=== PATIENT | female | born 1975 | race Hispanic/Latino ===

== ENCOUNTER 2018-04-25 15:27 | Emergency (ER) | payer BC, OTHER ==
[2018-04-25 15:31] VITALS: O2SAT 97
--- NOTE | 2018-04-25 16:00 | ED PDOC ---
HPI: General Adult Time Seen by Provider: 04/25/18 15:29 Chief Complaint (Nursing): Trauma Chief Complaint (Provider): lip laceration/fall/ History Per: Patient (42 y/o female states she tripped at construction site today and struck face. Believes she had LOC short episode subsequently but is not sure. Tetanus up to date 1.5 years ago. Patient denies any loose dentition.) Past Medical History Reviewed: Historical Data, Nursing Documentation, Vital Signs Vital Signs: Last Vital Signs Temp 98.0 F 04/25/18 15:29 Pulse 124 H 04/25/18 15:29 Resp 16 04/25/18 15:29 BP 164/115 H 04/25/18 15:29 Pulse Ox 97 04/25/18 15:29 - Medical History PMH: Anxiety - Family History Family History: States: Unknown Family Hx - Immunization History Hx Tetanus Toxoid Vaccination: Yes (2015) Hx Influenza Vaccination: No Hx Pneumococcal Vaccination: No - Home Medications Home Medications: Ambulatory Orders Medication Instructions Recorded Cyclobenzaprine [Cyclobenzaprine 10 mg PO Q8 #9 tab 04/23/17 HCl] Escitalopram [Lexapro] 10 mg PO DAILY 04/23/17 Ibuprofen [Motrin] 600 mg PO TID #30 tab 04/23/17 Lidocaine 5% [Lidoderm] 1 ea TD DAILY #6 patch 04/23/17 Cephalexin [Keflex] 500 mg PO QID #20 capsule 04/25/18 - Allergies Allergies/Adverse Reactions: Allergies Allergy/AdvReac Type Severity Reaction Status Date / Time No Known Allergies Allergy Verified 04/25/18 15:29 Review of Systems ROS Statement: Except As Marked, All Systems Reviewed And Found Negative Physical Exam - Reviewed Nursing Documentation Reviewed: Yes Vital Signs Reviewed: Yes - Physical Exam Appears: Positive for: Well, Non-toxic, No Acute Distress Head Exam: Positive for: NORMAL INSPECTION, NORMOCEPHALIC. Negative for: ATRAUMATIC ( abrasion noted frontal region of head/chin. ) Skin: Positive for: Normal Color, Warm, DRY Eye Exam: Positive for: EOMI, Normal appearance, PERRL ENT: Negative for: Normal ENT Inspection (abrasion-laceration above lip. 1.0 cm laceration noted above right side of lip involving vermilion border.) Neck: Positive for: Normal, Painless ROM Cardiovascular/Chest: Positive for: Regular Rate, Rhythm Respiratory: Positive for: CNT, Normal Breath Sounds Gastrointestinal/Abdominal: Positive for: Normal Exam, Soft Back: Positive for: Normal Inspection Extremity: Positive for: Normal ROM Neurologic/Psych: Positive for: Alert, Oriented - ECG O2 Sat by Pulse Oximetry: 97 - Progress ED Course And Treament: CT ORBIT/FACIAL Impression: No acute displaced fracture. Partially imaged cervical spine demonstrates straightening of normal cervical lordosis may be related to muscle spasm or positioning. CT HEAD : IMPRESSION: No acute intracranial pathology identified. 8 x 9 mm rounded heterogeneous opacity at the level of the cavernous sinus of unclear significance. Small aneurysm or neoplasm such as meningioma are not excluded. Recommend MRI brain and/or CTA or MRA of the brain for further evaluation. Generalized atrophy. Findings discussed with CARLOS ENRIQUE Richard on 04/25/18 at 5:27 p.m. MRA: UNREMARKABLE MRA OF BRAIN Disposition - Clinical Impression Clinical Impression: Facial injury, Facial laceration, Head injury - Patient ED Disposition Is Patient to be Admitted: No - Disposition Disposition: Routine/Home Disposition Time: 19:47 Condition: FAIR Additional Instructions: F/U IN 4 TO 5 DAYS FOR REMOVAL OF SUTURES Prescriptions: Cephalexin [Keflex] 500 mg PO QID #20 capsule Instructions: Laceration Repair With Stitches (DC), Minor Head Injury (DC) Forms: [facility] ED School/Work Excuse Procedure: Wound Repair - Time Performed Time Performed: 19:30 - Time Out Time Out: Site verified - Consent Obtained Consent obtained: Verbal - Performed by Performed by: Mid-level Provider - Indications Indication(s):: Laceration - Location Location:: Mouth Shape:: Linear Dimensions Length cm: 1.0CM - Anesthetic Technique Local/Regional Anesthetic:: Lidocaine 2% - Irrigated Irrigated with ml of normal saline: 150ML NS - Complexity Complexity:: Intermediate (2 layer) - Wound repair method Sutures:: # (1.0 CM THROUGH AND THROUGH LAC: TWO 6-0 VICRYL INTERNAL INTERRUPTED; THREE 6-0 NYLON INTERRUPTED EXTERNALLY) - Patient tolerated procedure Patient Tolerated Procedure:: Well
--- NOTE | 2018-04-25 17:31 | CT ---
Date of service: 04/25/2018 PROCEDURE: CT HEAD WITHOUT CONTRAST. HISTORY: head injury COMPARISON: None available. TECHNIQUE: Axial computed tomography images were obtained through the head/brain without intravenous contrast. Radiation dose: Total exam DLP = 1521.87 mGy-cm. This CT exam was performed using one or more of the following dose reduction techniques: Automated exposure control, adjustment of the mA and/or kV according to patient size, and/or use of iterative reconstruction technique. FINDINGS: HEMORRHAGE: No intracranial hemorrhage. BRAIN: Diffuse atrophy with prominence of the ventricles and sulci noted. No mass effect or edema. 8 x 9 mm rounded heterogeneous opacity the level of the cavernous sinus (series 4, image 111) of unclear significance. Scattered periventricular and subcortical white matter hypodensities, which are nonspecific, but often seen with chronic microvascular ischemic disease. Please note that MRI with diffusion imaging is more sensitive in the detection of acute ischemic event. VENTRICLES: No hydrocephalus. CALVARIUM: Unremarkable. PARANASAL SINUSES: Unremarkable as visualized. No significant inflammatory changes. MASTOID AIR CELLS: Unremarkable as visualized. No inflammatory changes. OTHER FINDINGS: None. IMPRESSION: No acute intracranial pathology identified. 8 x 9 mm rounded heterogeneous opacity at the level of the cavernous sinus of unclear significance. Small aneurysm or neoplasm such as meningioma are not excluded. Recommend MRI brain and/or CTA or MRA of the brain for further evaluation. Generalized atrophy. Findings discussed with CARLOS ENRIQUE Richard on 04/25/18 at 5:27 p.m.
--- NOTE | 2018-04-25 17:59 | CT ---
CT orbits without IV contrast Indication: Facial injury Comparison: Noncontrast head CT performed the same day Technique: Axial computed tomography images were obtained of the orbits without the use of intravenous contrast. Coronal and sagittal reformatted images were generated and reviewed. This CT exam was performed using 1 or more of the following dose reduction techniques: Automated exposure control, adjustment of the MAA and/or kV according to patient size, and/or use of iterative reconstruction technique. Radiation dose: Total exam DLP = 1521.87 mGy-cm. Findings: The facial bones appear intact without acute displaced fracture identified. The orbits appear unremarkable. The temporomandibular joints are located. The mastoid air cells appear clear. Paranasal sinuses appear clear. Partially imaged cervical spine demonstrates straightening of normal cervical lordosis may be related to muscle spasm or positioning. Impression: No acute displaced fracture. Partially imaged cervical spine demonstrates straightening of normal cervical lordosis may be related to muscle spasm or positioning.
[2018-04-25] MEDS ORDERED: Lidocaine PF 2% (5 ml) Inj (For Cardiac Arrhy) ONE (18:49)
[2018-04-25] MEDS: Lidocaine 2% Inj (20ml) INFIL STA (18:58)
[2018-04-25 19:51] VITALS: BP 119/79; PULSE 84; RESP 20; TEMP 97.9
--- NOTE | 2018-04-26 10:44 | MRI ---
Date of service: 04/25/2018 PROCEDURE: Magnetic Resonance Angiography Brain HISTORY: Evaluate for aneurysm COMPARISON: None available. TECHNIQUE: 3D time of flight MR angiography of the intracranial arteries was performed. Rotating maximum intensity projection images were generated. FINDINGS: INTERNAL CAROTID ARTERIES: Normal flow related signal. The skull base, petrous, cavernous and supraclinoid segments are bilaterally widely patient. ANTERIOR CEREBRAL ARTERIES: Normal flow related signal. A1 and A2 segments are widely patent. Smaller distal branches unremarkable, as visualized. MIDDLE CEREBRAL ARTERIES: Normal flow related signal. M1 and M2 segments are widely patent. Perisylvian branches grossly symmetric. POSTERIOR CIRCULATION: Basilar Artery: Normal flow related signal. Distal Vertebral Arteries: Normal flow related signal. Posterior Cerebral Arteries: Normal flow related signal. Posterior Inferior Cerebellar Arteries: Normal flow related signal. ANEURYSM/ VASCULAR MALFORMATIONS: None. OTHER FINDINGS: None. IMPRESSION: Normal MR angiography of the brain. No evidence for saccular aneurysm. A preliminary report was provided by [employer].
== END 2018-04-25 19:58 | disposition home or self-care (01) ==
LOC: H.ER 15:27
DX: S01.511A Laceration without foreign body of lip, initial encounter (principal); S01.81XA Laceration without foreign body of other part of head, initial encounter; S09.90XA Unspecified injury of head, initial encounter; W19.XXXA Unspecified fall, initial encounter; Y92.89 Other specified places as the place of occurrence of the external cause

== ENCOUNTER 2018-05-01 14:41 | Emergency (ER) | payer BC, OTHER ==
[2018-05-01 15:08] VITALS: BP 122/83; PULSE 100; RESP 18; TEMP 98.1; O2SAT 99
--- NOTE | 2018-05-01 15:58 | ED PDOC ---
HPI: Wound Care - HPI Time Seen by Provider: 05/01/18 15:56 Chief Complaint (Nursing): Suture/Staple Removal Chief Complaint (Provider): Suture Removal History Per: Patient Exam Limitations: no limitations Additional Complaint(s): 42 year old female presents to the ED for suture removal. 3 sutures were placed superior to the upper lip on April 25. PMD: [place] Past Medical History Reviewed: Historical Data, Nursing Documentation, Vital Signs Vital Signs: Last Vital Signs Temp 98.1 F 05/01/18 15:05 Pulse 100 H 05/01/18 15:05 Resp 18 05/01/18 15:05 BP 122/83 05/01/18 15:05 Pulse Ox 99 05/01/18 15:05 - Medical History PMH: Anxiety - Surgical History Surgical History: No Surg Hx - Family History Family History: States: Unknown Family Hx - Immunization History Hx Tetanus Toxoid Vaccination: Yes (2015) Hx Influenza Vaccination: No Hx Pneumococcal Vaccination: No - Home Medications Home Medications: Ambulatory Orders Medication Instructions Recorded Cyclobenzaprine [Cyclobenzaprine 10 mg PO Q8 #9 tab 04/23/17 HCl] Escitalopram [Lexapro] 10 mg PO DAILY 04/23/17 Ibuprofen [Motrin] 600 mg PO TID #30 tab 04/23/17 Lidocaine 5% [Lidoderm] 1 ea TD DAILY #6 patch 04/23/17 Cephalexin [Keflex] 500 mg PO QID #20 capsule 04/25/18 Ibuprofen [Motrin Tab] 800 mg PO Q6H PRN #20 tab 05/01/18 - Allergies Allergies/Adverse Reactions: Allergies Allergy/AdvReac Type Severity Reaction Status Date / Time No Known Allergies Allergy Verified 04/25/18 15:29 Review of Systems ROS Statement: Except As Marked, All Systems Reviewed And Found Negative Physical Exam - Reviewed Nursing Documentation Reviewed: Yes Vital Signs Reviewed: Yes - Physical Exam Appears: Positive for: Non-toxic, No Acute Distress Head Exam: Positive for: ATRAUMATIC, NORMOCEPHALIC Skin: Positive for: Normal Color, Warm, Dry Eye Exam: Positive for: Normal appearance Neck: Positive for: Normal, Painless ROM Cardiovascular/Chest: Negative for: Tachycardia Respiratory: Negative for: Respiratory Distress Extremity: Positive for: Normal ROM Neurologic/Psych: Positive for: Alert, Oriented. Negative for: Motor/Sensory Deficits Comments: 3 sutures, 6:0 nylon, superior to the upper lip intact without erythema or drainage. - ECG O2 Sat by Pulse Oximetry: 99 (RA) Pulse Ox Interpretation: Normal Medical Decision Making Medical Decision Making: Initial Impression: suture removal Initial Plan: Sutures easily removed without complications using 11 blade and suture removal kit. Patient requesting pain medication in the ED. Patient followed up with nurse practitioner and nurse practitioner was appalled we didn't give anything for pain at home. Patient was informed we can give Tylenol and Motrin over the counter and patient replied they don't work for her. It has been 6 days since the incident and can only give Motrin prescription at this time which patient has agreed to. Scribe Attestation: Documented by Otto Stoddard acting as a scribe for Jennifer MONACO. Provider Scribe Attestation: All medical record entries made by the Scribe were at my direction and personally dictated by me. I have reviewed the chart and agree that the record accurately reflects my personal performance of the history, physical exam, medical decision making, and the department course for this patient. I have also personally directed, reviewed, and agree with the discharge instructions and disposition. Disposition - Clinical Impression Clinical Impression: Removal of suture - Patient ED Disposition Is Patient to be Admitted: No - Disposition Referrals: Fitz Petty MD [Medical Doctor] - Disposition Time: 15:58 Condition: STABLE Prescriptions: Ibuprofen [Motrin Tab] 800 mg PO Q6H PRN #20 tab PRN Reason: Pain Instructions: Stitches Removal Forms: [employer] (Faroese)
== END 2018-05-01 16:01 | disposition home or self-care (01) ==
LOC: H.ER 14:41
DX: Z48.02 Encounter for removal of sutures (principal)

== ENCOUNTER 2018-08-17 13:51 | Inpatient (IN) | payer BC, OTHER ==
[2018-08-17] MEDS ORDERED: Sodium Chloride 0.9% 1,000 ML IV STA (14:32)
[2018-08-17] MEDS ORDERED: Morphine 4 MG/ML VIAL IVP ONE (14:32)
[2018-08-17] MEDS ORDERED: Morphine 4 MG/ML VIAL ONE ×4 (14:41→20:44)
--- NOTE | 2018-08-17 14:48 | ED PDOC ---
HPI: Abdomen Time Seen by Provider: 08/17/18 14:27 Chief Complaint (Nursing): Abdominal Pain Chief Complaint (Provider): Abdominal pain History Per: Patient History/Exam Limitations: no limitations Onset/Duration Of Symptoms: Hrs Outside of [place] travel?: No Location Of Pain/Discomfort: LUQ Associated Symptoms: Vomiting. denies: Fever, Diarrhea Additional History Per: Patient Additional Complaint(s): 43yo female, with history of pancreatitis s/p a scorpion bite last summer, comes in complaining of left upper quadrant abdominal pain since this morning. She reports associated vomiting, but denies any diarrhea, bleeding or fevers. She also denies any recent alcohol ingestion. No additional complaints. PMD: None provided Abnormal Vaginal Bleeding: No Past Medical History Reviewed: Historical Data, Nursing Documentation, Vital Signs Vital Signs: Last Vital Signs Temp 98.2 F 08/17/18 14:23 Pulse 77 08/17/18 14:23 Resp 18 08/17/18 14:23 BP 135/77 08/17/18 14:23 Pulse Ox 99 08/17/18 14:23 - Medical History PMH: Anxiety - Surgical History Surgical History: No Surg Hx - Family History Family History: States: No Known Family Hx - Immunization History Hx Tetanus Toxoid Vaccination: Yes (2015) Hx Influenza Vaccination: No Hx Pneumococcal Vaccination: No - Home Medications Home Medications: Ambulatory Orders Medication Instructions Recorded Cyclobenzaprine [Cyclobenzaprine 10 mg PO Q8 #9 tab 04/23/17 HCl] Escitalopram [Lexapro] 10 mg PO DAILY 04/23/17 Ibuprofen [Motrin] 600 mg PO TID #30 tab 04/23/17 Lidocaine 5% [Lidoderm] 1 ea TD DAILY #6 patch 04/23/17 Cephalexin [Keflex] 500 mg PO QID #20 capsule 04/25/18 Ibuprofen [Motrin Tab] 800 mg PO Q6H PRN #20 tab 05/01/18 - Allergies Allergies/Adverse Reactions: Allergies Allergy/AdvReac Type Severity Reaction Status Date / Time No Known Allergies Allergy Verified 04/25/18 15:29 Review of Systems ROS Statement: Except As Marked, All Systems Reviewed And Found Negative Constitutional: Negative for: Fever, Chills Cardiovascular: Negative for: Chest Pain Respiratory: Negative for: Shortness of Breath Gastrointestinal: Positive for: Vomiting, Abdominal Pain. Negative for: Diarrhea Physical Exam - Reviewed Nursing Documentation Reviewed: Yes Vital Signs Reviewed: Yes - Physical Exam Appears: Positive for: Non-toxic, No Acute Distress Head Exam: Positive for: ATRAUMATIC, NORMAL INSPECTION, NORMOCEPHALIC Skin: Positive for: Normal Color Eye Exam: Positive for: Normal appearance Neck: Positive for: Supple Cardiovascular/Chest: Positive for: Regular Rate, Rhythm Respiratory: Positive for: Normal Breath Sounds Gastrointestinal/Abdominal: Positive for: Soft, Tenderness (left upper and mid quadrants). Negative for: Guarding, Rebound Back: Positive for: Normal Inspection. Negative for: L CVA Tenderness Extremity: Positive for: Normal ROM Neurologic/Psych: Positive for: Alert, Oriented. Negative for: Motor/Sensory Deficits - ECG O2 Sat by Pulse Oximetry: 99 (RA) Pulse Ox Interpretation: Normal Medical Decision Making Medical Decision Makinyo female, history of pancreatitis, comes in with left upper quadrant pain rule out recurrent pancreatitis vs. gastritis vs. peptic ulcer disease Plan: -- Labs -- CT A/P w/ contrast -- IV Fluids -- Pepcid 20mg IV -- Zofran 4mg IV -- Morphine 2mg IV 1500 Patient signed out to Dr. Duarte pending ED workup. Scribe Attestation: Documented by Tanna Montes acting as a scribe for Gabe Arteaga MD. Provider Attestation: All medical record entries made by the Scribe were at my direction and personally dictated by me. I have reviewed the chart and agree that the record accurately reflects my personal performance of the history, physical exam, medical decision making, and the department course for this patient. I have also personally directed, reviewed, and agree with the discharge instructions and d isposition. Disposition - Clinical Impression Clinical Impression: Abdominal pain - Patient ED Disposition Is Patient to be Admitted: Transfer of Care - Disposition Disposition: Transfer of Care Disposition Time: 15:01 Condition: FAIR Forms: [id number] (Kinyarwanda) Patient Signed Over To: Rosa Duarte
[2018-08-17 15:08] LABS: BASO % 0.4 % (0.0-2.0); EOS % 0.1 % (0.0-4.0); HEMOGLOBIN 12.8 g/dL (12.0-16.0); LYMPH # 0.6 K/uL (1.0-4.3); LYMPH % 7.4 % (20.0-40.0); MEAN CELL VOLUME 103.2 fl (81.0-99.0); MEAN CORPUSCULAR HEMOGLOBIN 34.2 pg (27.0-31.0); MEAN CORPUSCULAR HGB CONC 33.2 g/dL (33.0-37.0); MEAN PLATELET VOLUME 7.3 fl (7.2-11.7); MONO # 0.5 K/uL (0.0-0.8); MONO % 5.9 % (0.0-10.0); NEUT % 86.2 % (50.0-75.0); PLATELET COUNT 159 K/uL (130-400); RBC 3.73 Mil/uL (3.80-5.20); RED CELL DISTRIBUTION WIDTH 12.9 % (11.5-14.5); WHITE BLOOD COUNT 8.1 K/uL (4.8-10.8)
[2018-08-17 15:29] LABS: ALB/GLOB RATIO 1.3 (1.0-2.1); ALBUMIN 4.1 g/dL (3.5-5.0); ALT/SGPT 122 U/L (9-52); AST/SGOT 236 U/L (14-36); BLOOD UREA NITROGEN 9 mg/dl (7-17); CALCIUM 8.8 mg/dL (8.4-10.2); GFR NON-AFRICAN AMERICAN > 60
[2018-08-17 15:54] LABS: LIPASE 12258 U/L (23-300)
--- NOTE | 2018-08-17 15:59 | ED PDOC ---
- Laboratory Results Result Diagrams: 08/19/18 04:30 08/19/18 21:00 Lab Results: Total Bilirubin 0.9 mg/dl (0.2-1.3) 08/17/18 14:50 AST 236 U/L (14-36) H 08/17/18 14:50 ALT 122 U/L (9-52) H 08/17/18 14:50 Alkaline Phosphatase 71 U/L (38-126) 08/17/18 14:50 Total Protein 7.2 G/DL (6.3-8.2) 08/17/18 14:50 Albumin 4.1 g/dL (3.5-5.0) 08/17/18 14:50 Globulin 3.1 gm/dL (2.2-3.9) 08/17/18 14:50 Albumin/Globulin Ratio 1.3 (1.0-2.1) 08/17/18 14:50 Lipase 54887 U/L (23-300) H 08/17/18 14:50 - ECG O2 Sat by Pulse Oximetry: 99 (RA) Pulse Ox Interpretation: Normal - Critical Care Total Time (In Min): 45 Medical Decision Making Medical Decision Making: Receiving sign out: Patient signed out to me by Dr. Arteaga at 1500 pending labs, imaging studies. 1558 Labs reviewed, [place] [address]. 1630 US Abdomen ordered Case discussed with Dr. Espinal, and patient accepted for admission due to acute pancreatitis. Plan for admission discussed with patient, who is agreeable. Dr. Cortes for GI consult. 19:[address] Cortes. Scribe Attestation: Documented by Tanna Montes acting as a scribe for Rosa Duarte MD. Provider Attestation: All medical record entries made by the Scribe were at my direction and personally dictated by me. I have reviewed the chart and agree that the record accurately reflects my personal performance of the history, physical exam, medical decision making, and the department course for this patient. I have also personally directed, reviewed, and agree with the discharge instructions and disposition. Disposition - Clinical Impression Clinical Impression: Necrotizing pancreatitis - POA Present On Arrival: None - Disposition Disposition: Admitted as In-Patient Disposition Time: 19:15 Condition: CRITICAL
[2018-08-17] MEDS ORDERED: Morphine 4 MG/ML VIAL IV STA ×2 (16:05→18:29)
[2018-08-17] MEDS ORDERED: Lactated Ringer's 1,000 ML IV SCH ×2 (16:15→18:30)
[2018-08-17] MEDS: Lactated Ringer's 1,000 ML IV SCH ×2 (16:44→18:47)
[2018-08-17] MEDS ORDERED: Iohexol 300 100 ML IJ ONE (16:52)
[2018-08-17] MEDS ORDERED: Sodium Chloride 0.9% 50 ML IV ONE (16:52)
[2018-08-17 17:05] LABS: PROTHROMBIN TIME 11.4 Seconds (9.8-13.1)
[2018-08-17 17:08] LABS: PARTIAL THROMBOPLASTIN TIME 24.4 Seconds (25.6-37.1)
--- NOTE | 2018-08-17 18:26 | US ---
Date of service: 08/17/2018 HISTORY: Epigastric/LUQ pain, pancreatitis COMPARISON: 2018 CT abdomen and pelvis TECHNIQUE: Sonographic evaluation of the abdomen. FINDINGS: LIVER: Measures 17.1 cm. Hepatopedal blood flow. Fatty infiltration manifest ultrasonographically as increased echogenicity of the liver parenchyma. No mass. No intrahepatic bile duct dilatation. Trace perihepatic ascites GALLBLADDER: Unremarkable. No gallstones. COMMON BILE DUCT: Measures 3.0 mm. No stones. No dilatation. PANCREAS: Edematous ill-defined head of the pancreas. No ductal dilatation. Peripancreatic fluid identified. RIGHT KIDNEY: Measures 4.1 x 10.8cm. Normal echogenicity. No calculus, mass, or hydronephrosis. LEFT KIDNEY: Measures 3.4 x 11.0cm. Normal echogenicity. No calculus, mass, or hydronephrosis. SPLEEN: Normal in size and contour. No mass. AORTA: No aneurysmal dilatation. IVC: Unremarkable. OTHER FINDINGS: None. IMPRESSION: Findings consistent with clinical history. Edematous enlarged pancreas is visualized with peripancreatic and perihepatic ascites.
--- NOTE | 2018-08-17 18:32 | CT ---
Date of service: 08/17/2018 PROCEDURE: CT Abdomen and Pelvis with contrast HISTORY: Abd pain COMPARISON: 2018 TECHNIQUE: Intravenous contrast dose: 90 cc Visipaque 320. Radiation dose: Total exam DLP = 263.48 mGy-cm. This CT exam was performed using one or more of the following dose reduction techniques: Automated exposure control, adjustment of the mA and/or kV according to patient size, and/or use of iterative reconstruction technique. FINDINGS: LOWER THORAX: Unremarkable. LIVER: Hepatic steatosis. No focal masses. No intrahepatic bile duct dilatation Unremarkable portal venous system. No evidence splenic vein thrombosis. GALLBLADDER AND BILE DUCTS: Unremarkable. PANCREAS: Severe pancreatitis. There is CT evidence necrotizing pancreatitis. The changes primarily affect the pancreatic head and body with relative sparing of the pancreatic tail. In addition to a profoundly edematous pancreas series peripancreatic fluid. This tracks along tissue planes interposed between the pancreas and stomach and pancreas and spleen. Trace perihepatic ascites. Small cyst likely pancreatic pseudocyst interposed between the pancreas, aorta and IVC. SPLEEN: Unremarkable. ADRENALS: Unremarkable. No mass. KIDNEYS AND URETERS: Unremarkable. No hydronephrosis. No solid mass. VASCULATURE: Unremarkable. No aortic aneurysm. No atherosclerotic calcification or mural plaque present. BOWEL: Dilatation of small bowel likely ileus related to severe pancreatitis. APPENDIX: Normal appendix. PERITONEUM: Unremarkable. No free fluid. No free air. LYMPH NODES: Unremarkable. No enlarged lymph nodes. BLADDER: Unremarkable. REPRODUCTIVE: Unremarkable. BONES: No acute fracture. OTHER FINDINGS: None. IMPRESSION: Necrotizing pancreatitis. Findings described in greater detail above. Communication of results: Verbal results provided to the attending physician in the emergency department at 18:26.
[2018-08-17 19:33] LABS: BANDS 4 % (0-2); EOSINOPHIL 1 % (0-7); LYMPHOCYTE 7 % (20-50); MONOCYTE 6 % (0-10); NEUTROPHIL 82 % (42-75); TOTAL CELLS COUNTED 100
[2018-08-17 19:34] LABS: ANISOCYTOSIS SLIGHT; PLATELET ESTIMATE NORMAL (NORMAL)
--- NOTE | 2018-08-17 19:37 | CP.PCM.CON ---
History of Present Illness - History of Present Illness History of Present Illness: Attending: Dr Espinal PMD: None Reason for Consult: Critical care Management Chief Complaint: Abdominal pain The Patient was seen and examined in the ED\ HPI: 43 years old female with hx of Anxiety, syncope and Pancreatitis, comes with one day of sharp continuous Left lower and upper quadrant abdominal pain, radiating to the whole abdomen and back, not relieved with Pepto Bismol. The pain began at rest and is associated with nausea and vomits. No fever, diarrhea nor urinary symptoms. PMH: Pancreatitis acquired after scorpion bite; Anxiety and panic attacks; Vasovagal syncopal episodes PSH: Varicose vein surgery SH: Never Smoked; Alcohol socially; Marijuana occasionally; Live with sister; Marketing by occupation now laid off FH:State: No known family hx Medication: Reviewed Review of Systems - Constitutional Constitutional: absent: Anorexia, Chills, Fatigue, Fever, Headache - EENT Eyes: Requires Corrective Lenses. absent: Blurred Vision, Diplopia, Floaters Ears: absent: Decreased Hearing, Tinnitus, Disequilibrium Nose/Mouth/Throat: absent: Epistaxis, Nasal Congestion, Nasal Discharge, Sinus Pain, Sinus Pressure - Cardiovascular Cardiovascular: absent: Chest Pain, Dyspnea, Edema - Respiratory Respiratory: absent: Cough, Dyspnea, Stridor, Excessive Mucous Production - Gastrointestinal Gastrointestinal: Abdominal Pain, Nausea, Vomiting. absent: Constipation, Diarrhea - Genitourinary Genitourinary: absent: Change in Urinary Stream, Difficulty Urinating, Dysuria, Flank Pain, Hematuria - Musculoskeletal Musculoskeletal: Back Pain. absent: Arthralgias, Muscle Cramps, Muscle Weakness - Integumentary Integumentary: absent: Pruritus, Rash, Skin Ulcer, Sores, Striae, Swelling - Neurological Neurological: absent: Confusion, Dizziness, Focal Weakness - Psychiatric Psychiatric: Anxiety. absent: Depression - Endocrine Endocrine: absent: Palpitations, Polydipsia, Polyphagia, Polyuria - Hematologic/Lymphatic Hematologic: absent: Easy Bleeding, Easy Bruising Past Patient History - Past Social History Smoking Status: Never Smoked Chewing Tobacco Use: No Cigar Use: No Alcohol: Occasional Drugs: Cannabis Home Situation {Lives}: With Family - CARDIAC Hx Cardiac Disorders: No - PULMONARY Hx Respiratory Disorders: No - NEUROLOGICAL Hx Syncope: Yes - HEENT Hx HEENT Problems: No - RENAL Hx Chronic Kidney Disease: No - ENDOCRINE/METABOLIC Hx Endocrine Disorders: No - HEMATOLOGICAL/ONCOLOGICAL Hx Blood Disorders: No - INTEGUMENTARY Hx Dermatological Problems: No - MUSCULOSKELETAL/RHEUMATOLOGICAL Hx Musculoskeletal Disorders: No - GASTROINTESTINAL Hx Pancreatitis: Yes - GENITOURINARY/GYNECOLOGICAL Hx Genitourinary Disorders: No - PSYCHIATRIC Hx Anxiety: Yes Hx Panic Symptoms: Yes - SURGICAL HISTORY Hx Surgeries: No - ANESTHESIA Hx Anesthesia: No Hx Anesthesia Reactions: No Hx Malignant Hyperthermia: No Meds Allergies/Adverse Reactions: Allergies Allergy/AdvReac Type Severity Reaction Status Date / Time No Known Allergies Allergy Verified 04/25/18 15:29 - Medications Medications: Current Medications Lactated Ringer's (Lactated Ringer's) 1,000 mls @ 1,000 mls/hr IV .Q1H [facility] Last Admin: 08/17/18 18:47 Dose: 1,000 mls/hr Lactated Ringer's (Lactated Ringer's) 1,000 mls @ 1,000 mls/hr IV .Q1H [facility] Last Admin: 08/17/18 18:48 Dose: 1,000 mls/hr Lactated Ringer's (Lactated Ringer's) 1,000 mls @ 1,000 mls/hr IV .Q1H [facility] Last Admin: 08/17/18 18:40 Dose: 1,000 mls/hr Physical Exam - Constitutional Appears: No Acute Distress - Head Exam Head Exam: ATRAUMATIC, NORMAL INSPECTION, NORMOCEPHALIC - Eye Exam Eye Exam: EOMI, Normal appearance Pupil Exam: NORMAL ACCOMODATION, PERRL - ENT Exam ENT Exam: Mucous Membranes Moist, Normal Exam, Normal External Ear Exam - Neck Exam Neck exam: Positive for: Full Rom, Normal Inspection. Negative for: Lymphadenopathy, Tenderness - Respiratory Exam Respiratory Exam: Clear to Auscultation Bilateral. absent: Rales, Rhonchi, Wheezes - Cardiovascular Exam Cardiovascular Exam: REGULAR RHYTHM, RRR, +S1, +S2. absent: Gallop, JVD - GI/Abdominal Exam Additional comments: Abdomen Flat Soft Decreased Bowel sounds, Tender at the Periumbilical and LUQ, No guarding mild rebound tenderness. - Rectal Exam Rectal Exam: Deferred - Extremities Exam Extremities exam: Positive for: full ROM, normal inspection. Negative for: calf tenderness, pedal edema - Back Exam Back exam: NORMAL INSPECTION. absent: CVA tenderness (L), CVA tenderness (R) - Neurological Exam Neurological exam: Alert, CN II-XII Intact, Oriented x3, Reflexes Normal - Psychiatric Exam Psychiatric exam: Normal Affect, Normal Mood - Skin Skin Exam: Dry, Intact, Normal Color, Warm Results - Vital Signs Recent Vital Signs: Last Vital Signs Temp 98.2 F 08/17/18 14:23 Pulse 65 08/17/18 18:45 Resp 22 08/17/18 18:45 BP 151/97 H 08/17/18 18:45 Pulse Ox 99 08/17/18 19:23 - Labs Result Diagrams: 08/17/18 14:50 08/17/18 14:50 Labs: Laboratory Results - last 24 hr 08/17/18 08/17/18 08/17/18 14:50 14:50 16:45 WBC 8.1 RBC 3.73 L Hgb 12.8 Hct 38.5 MCV 103.2 H MCH 34.2 H MCHC 33.2 RDW 12.9 Plt Count 159 MPV 7.3 Neut % (Auto) 86.2 H Lymph % (Auto) 7.4 L [place] % (Auto) 5.9 Eos % (Auto) 0.1 Baso % (Auto) 0.4 Neut # (Auto) 7.0 Lymph # (Auto) 0.6 L [place] # (Auto) 0.5 Eos # (Auto) 0.0 Baso # (Auto) 0.0 Neutrophils % (Manual) 82 H Band Neutrophils % 4 H Lymphocytes % (Manual) 7 L Monocytes % (Manual) 6 Eosinophils % (Manual) 1 Platelet Estimate Normal Anisocytosis (manual) Slight Macrocytosis (manual) Slight PT 11.4 INR 1.0 APTT 24.4 L D-Dimer, Quantitative 740 H Sodium 136 Potassium 3.4 L Chloride 95 L Carbon Dioxide 23 Anion Gap 21 H BUN 9 Creatinine 0.4 L Est GFR ( Amer) > 60 Est GFR (Non-Af Amer) > 60 Random Glucose 158 H Calcium 8.8 Total Bilirubin 0.9 AST 236 H ALT 122 H Alkaline Phosphatase 71 Total Protein 7.2 Albumin 4.1 Globulin 3.1 Albumin/Globulin Ratio 1.3 Lipase 63801 H - Imaging and Cardiology CT scan - abdomen Status: Report reviewed by me Additional comment: Signs of Necrotizing Pancreatitis Assessment & Plan - Assessment and Plan (Free Text) Assessment: #. Necrotizing Pancreatitis #. Hypokalemia Plan: 43 years old female with hx of Anxiety, syncope and Pancreatitis, comes with one day of sharp continuous Left lower and upper quadrant abdominal pain, radiating to the whole abdomen and back, not relieved with Pepto Bismol. #.Abdominal Pain caused by Necrotizing Pancreatitis - Admit to ICU for close management - CT Abdomen/Pelvis done - Consult Dr Cortes GI -IV Fluids Ringer's Lactate 300mls/Hr - Pain management - NPO #. Hypokalemia. Replace Potassium - Maintenence of KCL #. Stress Ulcer prophylaxis - Pepcid #. DVT Prophylaxis: SCD No Anticoagulant because of possibility of bleeding #. Code Status: Full - Date & Time Date: 08/17/18 Time: 19:37
[2018-08-17] MEDS ORDERED: Morphine 4 MG/ML VIAL IVP PRN ×3 (20:15→20:19)
[2018-08-17] MEDS: Potassium Chloride 20 mEq 100 ML IVPB SCH (22:56)
[2018-08-17] MEDS ORDERED: Morphine 4 MG/ML VIAL IVP STA (23:04)
[2018-08-18] MEDS: Potassium Chloride 20 mEq 100 ML IVPB SCH (00:49)
[2018-08-18] MEDS: Morphine 4 MG/ML VIAL IVP PRN ×3 (03:06→20:18)
[2018-08-18 03:15] VITALS: BMI 23.8
[2018-08-18] MEDS: Lactated Ringer's 1,000 ML IV SCH ×3 (04:19→14:25)
[2018-08-18 05:24] LABS: BASO % 0.4 % (0.0-2.0); EOS # 0.1 K/uL (0.0-0.7); EOS % 1.7 % (0.0-4.0); HEMOGLOBIN 11.9 g/dL (12.0-16.0); LYMPH # 0.8 K/uL (1.0-4.3); LYMPH % 10.4 % (20.0-40.0); MEAN CELL VOLUME 104.1 fl (81.0-99.0); MEAN CORPUSCULAR HEMOGLOBIN 34.9 pg (27.0-31.0); MEAN CORPUSCULAR HGB CONC 33.6 g/dL (33.0-37.0); MEAN PLATELET VOLUME 7.6 fl (7.2-11.7); MONO # 0.7 K/uL (0.0-0.8); MONO % 8.2 % (0.0-10.0); NEUT # 6.5 K/uL (1.8-7.0); NEUT % 79.3 % (50.0-75.0); RBC 3.4 Mil/uL (3.80-5.20); WHITE BLOOD COUNT 8.1 K/uL (4.8-10.8)
[2018-08-18 05:47] LABS: ALB/GLOB RATIO 1.1 (1.0-2.1); ALT/SGPT 82 U/L (9-52); AST/SGOT 117 U/L (14-36); BLOOD UREA NITROGEN 3 mg/dl (7-17); CALCIUM 7.6 mg/dL (8.4-10.2); GFR NON-AFRICAN AMERICAN > 60; LIPASE 8448 U/L (23-300)
[2018-08-18] MEDS ORDERED: Magnesium Sulfate 4 gm/100 ml 4 GM/100 ML BAG IVPB ONE (06:12)
--- NOTE | 2018-08-18 21:28 | PN ---
DATE: 08/18/2018 CRITICAL CARE PROGRESS NOTE LOCATION: The patient in ICU, bed 426. Time spent 35 minutes. The patient is seen and evaluated at the bed side. Past medical, surgical, social and family history are reviewed. SUBJECTIVE: A 43-year-old female with anxiety disorder, previous pancreatitis, status post surgery for varicose veins with chronic backache, status post epidural injections in the past and using hydrocodone as needed for the backache, in the usual state of health until last Tuesday when she had a couple of drinks of wine in her friend's home with a Super Bowl celebration, developed pain in the abdomen two days prior to the admission, came to emergency room, noted to have severe pancreatitis as noted in the CT scan of the abdomen. Ultrasound of the abdomen showed no gallstones. No intraductal dilatation. Currently n.p.o., on IV fluid. Overnight uneventful. Still complaining of pain in the abdomen. No nausea, vomiting, or diarrhea. No fever, chills, cough, or shortness of breath. PHYSICAL EXAMINATION: VITAL SIGNS: Temperature 98.2, heart rate 92 and regular, blood pressure 124/91, mean arterial pressure 102, respiratory rate 21, saturation 97% on room air. Intake 2870, output not recorded. HEAD, EYES, EARS, NOSE AND THROAT: Pupils are reactive. Conjunctivae pink. Sclerae anicteric. NECK: Supple. Trachea central. CHEST: Bilateral breath sounds. Clear to auscultation. HEART: Rhythm regular. S1 and S2 normal intensity. No S3 or S4 gallop. No audible murmur. ABDOMEN: Bowel sounds are present and soft. Liver and spleen not palpable. Bladder not distended. EXTREMITIES: No clubbing, cyanosis or edema. NEUROLOGIC: Nonfocal. CURRENT MEDICATIONS: Pepcid 20 mg IV every 12 hours, Ringer's lactate at 300 mL per hour, morphine sulfate 2 mg IV every 4 hours p.r.n. for pain, morphine 1 mg IV every 4 hours p.r.n. for mild pain. LABORATORY DATA: WBC 8.1, hemoglobin 11.9, hematocrit 35.5, platelet count 132, neutrophils 79.3, lymphocytes 10.4, monocytes 8.2, eosinophils 1.7. PT 11.4, INR 1, PTT 24.4. D-dimer is 740. SMA-7: Sodium 133, potassium 3.7, chloride 94, CO2 of 27, blood urea nitrogen 3, creatinine 0.3, random glucose 114, calcium 7.6, phosphorus 3.3, magnesium 0.8. Total bilirubin 0.6, AST 117, ALT 82, alkaline phosphatase 53, total protein 5.8, albumin 3. Lipase 8448, decreased from 12,258. Microbiology, none reported. IMPRESSION AND PLAN: A 43-year-old male with acute necrotizing pancreatitis, history of social ethyl alcohol and last drink on three to four days prior to the admission. The patient also has a history of chronic backache, on narcotics and status post epidural injection. The patient has been advised about the risk of drinking alcohol. We will continue to keep on nothing by mouth, acid suppressing agents, gut rest, intravenous fluid, analgesics as needed. Monitor for any withdrawal symptoms. CT showed possible pseudocyst. We will closely monitor for further an enlarging cyst and/or superimposed infection. Ben Zhao MD
[2018-08-19] MEDS: Morphine 4 MG/ML VIAL IVP PRN ×4 (01:43→20:31)
[2018-08-19] MEDS: Lactated Ringer's 1,000 ML IV SCH ×5 (01:47→20:41)
--- NOTE | 2018-08-19 06:21 | CON ---
DATE: 08/18/2018 REFERRING DOCTOR: Thiago Jacobs MD REASON FOR CONSULTATION: Pancreatitis. HISTORY OF PRESENT ILLNESS: This is a pleasant 43-year-old female, who basically had a scorpion bite in the summer and developed significant pancreatitis. She went on a trip, now comes in especially for one day of significant amount of pain and discomfort in the epigastric region and the left lower quadrant. The patient has social alcohol use. Her last drink was five days ago and the pain started last night. The patient is currently lying in bed, in mild abdominal distress. PAST MEDICAL HISTORY: As above. Prior episode of pancreatitis. PAST SURGICAL HISTORY: As above. MEDICATIONS: Have been reviewed. REVIEW OF SYSTEMS: All other systems have been reviewed and negative apart from the HPI. PHYSICAL EXAMINATION: VITAL SIGNS: Here in the hospital are grossly unremarkable. GENERAL: This is a pleasant middle-aged female, lying in bed comfortable, in no apparent distress. HEENT: Head, normocephalic and atraumatic. Eyes, pupils are equally reactive to light bilaterally. No conjunctival pallor or icterus. NECK: Supple. Normal range of motion. No lymphadenopathy appreciated. LUNGS: Coarse breath sounds bilaterally. HEART: S1 and S2. Regular rate and rhythm. No murmurs appreciated. ABDOMEN: Soft. Some discomfort. No rebound. No guarding. RECTAL: Deferred. EXTREMITIES: Pulses present bilaterally. SKIN: Warm, dry, and intact. NEUROLOGIC: A and O x3. LABORATORY DATA: All labs and radiology have been reviewed. WBC of 8.1, hemoglobin of 11.9, hematocrit 35.5, platelet count is 132, 82% neutrophils, INR is 1. AST 117; ALT 82; bilirubin is normal; lipase was 12,000, now is over 8000. CAT scan shows findings of necrotizing pancreatitis as well as pseudocyst formation. ASSESSMENT AND PLAN: This is a 43-year-old female with necrotizing pancreatitis. This is more likely extension of the previous episode from the summer. NPO for now. Pain control. Consider surgical evaluation. We will follow up the patient with you. Thank you for the consult. Иван Cortes MD/ PhD cc: Thiago Jacobs MD
[2018-08-19 06:38] LABS: HEMOGLOBIN 12.7 g/dL (12.0-16.0); MEAN CELL VOLUME 104.5 fl (81.0-99.0); MEAN CORPUSCULAR HEMOGLOBIN 35.3 pg (27.0-31.0); MEAN CORPUSCULAR HGB CONC 33.7 g/dL (33.0-37.0); RBC 3.59 Mil/uL (3.80-5.20); RED CELL DISTRIBUTION WIDTH 12.8 % (11.5-14.5); WHITE BLOOD COUNT 10.6 K/uL (4.8-10.8)
[2018-08-19 06:52] LABS: ALT/SGPT 63 U/L (9-52); AST/SGOT 65 U/L (14-36); BLOOD UREA NITROGEN 2 mg/dl (7-17); CALCIUM 7.9 mg/dL (8.4-10.2); GFR NON-AFRICAN AMERICAN > 60; HDL CHOLESTEROL 53 MG/DL (30-70)
[2018-08-19 06:59] LABS: LDL CHOLESTEROL 45 mg/dL (0-129)
[2018-08-19 07:25] LABS: LIPASE 4251 U/L (23-300)
[2018-08-19] MEDS ORDERED: Magnesium Sulfate 1 gm in D5W 1 GM/100 ML BAG IVPB ONE (09:46)
[2018-08-19] MEDS ORDERED: Morphine 4 MG/ML VIAL IVP STA (10:33)
--- NOTE | 2018-08-19 11:02 | CP.PCM.PN ---
Subjective - Date & Time of Evaluation Date of Evaluation: 08/19/18 Time of Evaluation: 11:01 - Subjective Subjective: feels better Objective - Vital Signs/Intake and Output Vital Signs (last 24 hours): Temp Pulse Resp BP Pulse Ox 98.8 F 91 H 15 117/84 97 08/19/18 08:00 08/19/18 08:00 08/19/18 08:00 08/19/18 08:00 08/19/18 08:00 Intake and Output: 08/19/18 08/19/18 06:59 18:59 Intake Total 3600 600 Balance 3600 600 - Medications Medications: Current Medications Famotidine (Pepcid) 20 mg IVP Q12 [facility] Last Admin: 08/19/18 08:45 Dose: 20 mg Lactated Ringer's (Lactated Ringer's) 1,000 mls @ 1,000 mls/hr IV .Q1H [facility] Last Admin: 08/17/18 18:47 Dose: 1,000 mls/hr Lactated Ringer's (Lactated Ringer's) 1,000 mls @ 1,000 mls/hr IV .Q1H [facility] Last Admin: 08/17/18 18:48 Dose: 1,000 mls/hr Lactated Ringer's (Lactated Ringer's) 1,000 mls @ 1,000 mls/hr IV .Q1H [facility] Last Admin: 08/17/18 18:40 Dose: 1,000 mls/hr Lactated Ringer's (Lactated Ringer's) 1,000 mls @ 300 mls/hr IV .Q3H20M [facility] Last Admin: 08/19/18 05:16 Dose: 300 mls/hr Morphine Sulfate (Morphine) 2 mg IVP Q4 PRN PRN Reason: Pain, moderate (4-7) Last Admin: 08/18/18 13:16 Dose: 2 mg Morphine Sulfate (Morphine) 1 mg IVP Q4 PRN PRN Reason: Pain, Mild (1-3) Morphine Sulfate (Morphine) 4 mg IVP Q4 PRN PRN Reason: Pain, severe (8-10) Last Admin: 08/19/18 07:16 Dose: 4 mg - Labs Labs: 08/19/18 04:30 08/19/18 04:30 PT 11.4 Seconds (9.8-13.1) 08/17/18 16:45 INR 1.0 08/17/18 16:45 APTT 24.4 Seconds (25.6-37.1) L 08/17/18 16:45 - ENT Exam ENT Exam: Normal Exam - Neck Exam Neck Exam: Normal Inspection - Respiratory Exam Respiratory Exam: Clear to Ausculation Bilateral, NORMAL BREATHING PATTERN - Cardiovascular Exam Cardiovascular Exam: REGULAR RHYTHM - GI/Abdominal Exam GI & Abdominal Exam: Soft, Tenderness, Normal Bowel Sounds Assessment and Plan - Assessment and Plan (Free Text) Assessment: 43 yo female with necrotizing pancreatitis clinically improving npo for now surgical evaluation
[2018-08-19] MEDS ORDERED: Potassium Chloride 20 mEq 100 ML IVPB SCH (14:45)
[2018-08-19] MEDS: Potassium Chloride 20 mEq 100 ML IVPB SCH ×2 (16:14→18:36)
--- NOTE | 2018-08-19 16:40 | CP.PCM.CON ---
History of Present Illness - History of Present Illness History of Present Illness: Surgery Consult Note- Dr. Tolliver Reason for consult: Necrotizing Pancreatitis 43F pmhx significant for anxiety, pancreatitis last summer s/p scorpion bite presents to [facility] ED w/ sharp abdominal pain in the lower abdomen, concentrated mid-epigastrum that started last , associated w/ nausea and non bloody, non-bilious vomiting. Hospital work up showed pancreatitis, CT scan resembles necrotic pancreatitis. Patient was admitted to the ICU for aggressive fluid hydration. GI on board. Denies: recent vomiting, fevers, chills. 12 pt ROS conducted, negative otherwise stated above PMH: stated above PSH: varicose vein surgery ALL: NKDA SocialHx: social ETOH, denies tobacco, recreational drug use FH: non contributory Review of Systems - Review of Systems All systems: reviewed and no additional remarkable complaints except - Constitutional Constitutional: As Per HPI Past Patient History - Past Medical History & Family History Past Medical History?: Yes - Past Social History Smoking Status: Never Smoked Chewing Tobacco Use: No Cigar Use: No Alcohol: Occasional Drugs: Cannabis Home Situation {Lives}: With Family - CARDIAC Hx Cardiac Disorders: No - PULMONARY Hx Respiratory Disorders: No - NEUROLOGICAL Hx Syncope: Yes - HEENT Hx HEENT Problems: No - RENAL Hx Chronic Kidney Disease: No - ENDOCRINE/METABOLIC Hx Endocrine Disorders: No - HEMATOLOGICAL/ONCOLOGICAL Hx Blood Disorders: No - INTEGUMENTARY Hx Dermatological Problems: No - MUSCULOSKELETAL/RHEUMATOLOGICAL Hx Musculoskeletal Disorders: No - GASTROINTESTINAL Hx Pancreatitis: Yes - GENITOURINARY/GYNECOLOGICAL Hx Genitourinary Disorders: No - PSYCHIATRIC Hx Anxiety: Yes Hx Panic Symptoms: Yes - SURGICAL HISTORY Hx Surgeries: No - ANESTHESIA Hx Anesthesia: No Hx Anesthesia Reactions: No Hx Malignant Hyperthermia: No Meds Allergies/Adverse Reactions: Allergies Allergy/AdvReac Type Severity Reaction Status Date / Time No Known Allergies Allergy Verified 08/18/18 03:15 - Medications Medications: Current Medications Famotidine (Pepcid) 20 mg IVP Q12 [facility] Last Admin: 08/19/18 08:45 Dose: 20 mg Lactated Ringer's (Lactated Ringer's) 1,000 mls @ 1,000 mls/hr IV .Q1H [facility] Last Admin: 08/17/18 18:47 Dose: 1,000 mls/hr Lactated Ringer's (Lactated Ringer's) 1,000 mls @ 1,000 mls/hr IV .Q1H [facility] Last Admin: 08/17/18 18:48 Dose: 1,000 mls/hr Lactated Ringer's (Lactated Ringer's) 1,000 mls @ 1,000 mls/hr IV .Q1H [facility] Last Admin: 08/17/18 18:40 Dose: 1,000 mls/hr Lactated Ringer's (Lactated Ringer's) 1,000 mls @ 300 mls/hr IV .Q3H20M [facility] Last Admin: 08/19/18 05:16 Dose: 300 mls/hr Potassium Chloride (Potassium Chloride 20 Meq/100 Ml) 100 mls @ 50 mls/hr IVPB Q2 [facility] Stop: 08/19/18 17:59 Last Admin: 08/19/18 16:14 Dose: 50 mls/hr Morphine Sulfate (Morphine) 2 mg IVP Q4 PRN PRN Reason: Pain, moderate (4-7) Last Admin: 08/18/18 13:16 Dose: 2 mg Morphine Sulfate (Morphine) 1 mg IVP Q4 PRN PRN Reason: Pain, Mild (1-3) Morphine Sulfate (Morphine) 4 mg IVP Q4 PRN PRN Reason: Pain, severe (8-10) Last Admin: 08/19/18 16:13 Dose: 4 mg Physical Exam - Constitutional Appears: Non-toxic, No Acute Distress - Head Exam Head Exam: ATRAUMATIC - Eye Exam Eye Exam: EOMI. absent: Scleral icterus - ENT Exam ENT Exam: Mucous Membranes Moist - Respiratory Exam Respiratory Exam: NORMAL BREATHING PATTERN. absent: Accessory Muscle Use, Respiratory Distress - Cardiovascular Exam Cardiovascular Exam: Tachycardia, REGULAR RHYTHM. absent: Bradycardia - GI/Abdominal Exam GI & Abdominal Exam: Soft, Tenderness (to lower abdomen, sharpest pain mid- epigastrum). absent: Distended, Firm, Guarding, Hernia - Extremities Exam Extremities exam: Negative for: calf tenderness - Neurological Exam Neurological exam: Alert, Oriented x3 - Psychiatric Exam Psychiatric exam: Normal Affect - Skin Skin Exam: Intact, Warm Results - Vital Signs Recent Vital Signs: Last Vital Signs Temp 98.8 F 08/19/18 08:00 Pulse 93 H 08/19/18 12:00 Resp 15 08/19/18 12:00 BP 122/91 H 08/19/18 12:00 Pulse Ox 97 08/19/18 12:00 - Labs Result Diagrams: 08/19/18 04:30 08/19/18 21:00 Labs: Laboratory Results - last 24 hr 08/19/18 08/19/18 04:30 04:30 WBC 10.6 RBC 3.59 L Hgb 12.7 Hct 37.5 MCV 104.5 H MCH 35.3 H MCHC 33.7 RDW 12.8 Plt Count 134 Sodium 136 Potassium 3.2 L Chloride 96 L Carbon Dioxide 26 Anion Gap 17 BUN 2 L Creatinine 0.4 L Est GFR ( Amer) > 60 Est GFR (Non-Af Amer) > 60 Random Glucose 89 Calcium 7.9 L Total Bilirubin 0.5 AST 65 H D ALT 63 H D Alkaline Phosphatase 58 Total Protein 5.9 L Albumin 3.0 L Globulin 2.9 Albumin/Globulin Ratio 1.0 Triglycerides 60 Cholesterol 115 LDL Cholesterol Direct 45 HDL Cholesterol 53 Lipase 4251 H Assessment & Plan - Assessment and Plan (Free Text) Assessment: 43 w/ necrotizing pancreatitis Plan: - continous vitals monitoring - f/u repeat labs - will continue to monitor - no acute surgical intervention indicated at this time - pain control and anti-emetic PRN - further recs per Dr. Tolliver surgical attending PGY2
--- NOTE | 2018-08-19 18:22 | PN ---
DATE: 08/19/2018 CRITICAL CARE PROGRESS NOTE LOCATION: ICU, bed 426. TIME SPENT: 35 minutes. SUBJECTIVE: The patient is seen and evaluated at the bedside. Past medical, surgical, social, and family history reviewed. A 43-year-old female with anxiety disorder, previous pancreatitis, status post surgery for varicose veins and chronic backache, status post epidural injection and on hydrocodone, admitted with abdominal pain secondary to necrotizing pancreatitis. Currently, n.p.o. and on IV fluid. Pain reduced in intensity. No headache, shortness of breath, chest pain, or palpitation, still with abdominal discomfort. Bowel movement present. No diarrhea or melena. PHYSICAL EXAMINATION: VITAL SIGNS: Temperature 98.8, heart rate of 91 and regular, blood pressure 117/84, mean arterial pressure 95, respiratory rate 15, oxygen saturation 97% on room air. Intake 6700, output not documented. Weight 142 pounds, increased by 3 pounds. HEAD, EYES, EARS, NOSE AND THROAT: Pupils are reactive. Conjunctivae pink. Sclerae white. NECK: Supple. Trachea central. CHEST: Bilateral breath sounds clear to auscultation. HEART: Rhythm regular. S1, S2 normal. No S3 or S4 gallop. No audible murmur. ABDOMEN: Bowel sounds present. Soft. Liver and spleen not palpable. Bladder not distended. EXTREMITIES: Without clubbing, cyanosis, or edema. NEUROLOGICAL: Nonfocal. LABORATORY DATA: WBC 10.6, hemoglobin 12.7, hematocrit 37.5, platelet count 134. SMA-7: Sodium 136, potassium 3.2, chloride 96, CO2 of 26, blood urea nitrogen 2, creatinine 0.4, random glucose 89, calcium 7.9, magnesium 0.8, total bilirubin 0.5, AST 65, ALT 63, alkaline phosphatase 58, total protein 5.9, albumin 3, cholesterol 115, LDL 45, HDL 53, and lipase 4251. CURRENT MEDICATIONS: Pepcid 20 mg IV every 12 hours, Ringer's lactate at 300 mL/hour, morphine 2 mg IV every 4 hours p.r.n. for moderate pain. Microbiology, none reported. Abdominal ultrasound, edematous and enlarged pancreas with peripancreatic and perihepatic ascites. No gallstones. No bile duct dilatation. IMPRESSION AND PLAN: Admitted with acute necrotizing pancreatitis and history of pancreatitis before. Currently, nothing by mouth and on intravenous fluid and analgesics. Lipase and liver enzymes are markedly improved. Still with abdominal discomfort. We will continue intravenous hydration and nothing by mouth. Continue proton pump inhibitor and analgesics as needed. The patient can be transferred to regular floor for continued followup. Ben Zhao MD
[2018-08-19 22:04] LABS: BLOOD UREA NITROGEN 2 mg/dl (7-17); CALCIUM 8.1 mg/dL (8.4-10.2); GFR NON-AFRICAN AMERICAN > 60
[2018-08-19 22:05] LABS: ALBUMIN 2.7 g/dL (3.5-5.0)
[2018-08-19 22:06] LABS: ALT/SGPT 58 U/L (9-52); AST/SGOT 48 U/L (14-36)
[2018-08-19] MEDS: Dextrose 5%/Lactated Ringer's 1,000 ML IV SCH (22:47)
[2018-08-20] MEDS: Dextrose 5%/Lactated Ringer's 1,000 ML IV SCH ×3 (02:01→08:56)
[2018-08-20 08:27] VITALS: BP 138/88; PULSE 95; RESP 18; TEMP 98.4
--- NOTE | 2018-08-20 09:30 | CP.PCM.PN ---
<Nito Nelson - Last Filed: 08/20/18 11:54> Subjective - Date & Time of Evaluation Date of Evaluation: 08/20/18 Time of Evaluation: 09:27 - Subjective Subjective: Surgery Progress note- Dr. Tolliver Patient seen and examined at bedside. patient downgraded from the unit to med/surg. clinically improving. denies abd pain at this time. currently NPO. denies nausea, vomiting, fevers, chills. + OOB and ambulating. currently being hydrated IV. Objective - Vital Signs/Intake and Output Vital Signs (last 24 hours): Temp Pulse Resp BP Pulse Ox 98.4 F 95 H 18 138/88 96 08/20/18 08:27 08/20/18 08:27 08/20/18 08:27 08/20/18 08:27 08/20/18 08:27 - Medications Medications: Current Medications Famotidine (Pepcid) 20 mg IVP Q12 [facility] Last Admin: 08/19/18 21:06 Dose: 20 mg Dextrose/Lactated Ringer's (Dextrose 5%/Lactated Ringer's) 1,000 mls @ 300 mls/hr IV .Q3H20M ANGELINA Stop: 08/20/18 22:43 Last Admin: 08/20/18 08:56 Dose: 300 mls/hr Morphine Sulfate (Morphine) 2 mg IVP Q4 PRN PRN Reason: Pain, moderate (4-7) Last Admin: 08/18/18 13:16 Dose: 2 mg Morphine Sulfate (Morphine) 1 mg IVP Q4 PRN PRN Reason: Pain, Mild (1-3) Morphine Sulfate (Morphine) 4 mg IVP Q4 PRN PRN Reason: Pain, severe (8-10) Last Admin: 08/19/18 20:31 Dose: 4 mg - Labs Labs: 08/19/18 04:30 08/19/18 21:00 PT 11.4 Seconds (9.8-13.1) 08/17/18 16:45 INR 1.0 08/17/18 16:45 APTT 24.4 Seconds (25.6-37.1) L 08/17/18 16:45 - Constitutional Appears: Non-toxic, No Acute Distress - Head Exam Head Exam: ATRAUMATIC - Eye Exam Eye Exam: EOMI. absent: Scleral icterus - ENT Exam ENT Exam: Mucous Membranes Moist - Respiratory Exam Respiratory Exam: NORMAL BREATHING PATTERN. absent: Accessory Muscle Use, Respiratory Distress - Cardiovascular Exam Cardiovascular Exam: Tachycardia, REGULAR RHYTHM. absent: Bradycardia - GI/Abdominal Exam GI & Abdominal Exam: Soft, Tenderness (tender to deep palpation in mid- epigastrum). absent: Distended, Firm, Guarding, Rigid - Extremities Exam Extremities Exam: absent: Calf Tenderness - Neurological Exam Neurological Exam: Alert, Awake, Oriented x3 - Psychiatric Exam Psychiatric exam: Normal Affect - Skin Skin Exam: Intact, Warm Assessment and Plan - Assessment and Plan (Free Text) Assessment: 43F w/ necrotizing pancreatitis Plan: - continue IV hydration - pain control PRN - will start CLD - recommend clear liquids for 2-3 days - no acute surgical intervention indicated at this time - cleared for discharge from a surgical standpoint - d/w Dr. Tolliver surgical attending PGY2 <Mazin Tolliver - Last Filed: 08/20/18 20:32> Objective - Vital Signs/Intake and Output Vital Signs (last 24 hours): Temp Pulse Resp BP Pulse Ox 98.4 F 95 H 18 138/88 96 08/20/18 08:27 08/20/18 08:27 08/20/18 08:27 08/20/18 08:27 08/20/18 08:27 - Labs Labs: 08/19/18 04:30 08/19/18 21:00 PT 11.4 Seconds (9.8-13.1) 08/17/18 16:45 INR 1.0 08/17/18 16:45 APTT 24.4 Seconds (25.6-37.1) L 08/17/18 16:45 Attending/Attestation - Attestation I have personally seen and examined this patient.: Yes I have fully participated in the care of the patient.: Yes I have reviewed all pertinent clinical information, including history, physical exam and plan: Yes Notes (Text): Pt was seen and examined at bedside Agree with above note and assessment Pt is improving clinically Advanced diet Can be DC home f/u as out pt Plan d.w pt in detail Risk and benefit explained in detail.
--- NOTE | 2018-08-20 14:10 | CP.PCM.DIS ---
Provider - Provider Date of Admission: 08/17/18 16:10 Attending physician: Caleb Espinal MD Consults: 08/17/18 16:11 Gastroenterology Consult Stat Comment: Consulting Provider: Иван Marie Consulting Physician: Иван Marie Reason for Consult: Pancreatitis 08/18/18 14:32 General Surgery Consult Routine Comment: Consulting Provider: Mazin Tolliver Consulting Physician: Mazin Tolliver Reason for Consult: Necrotizing pancreatitis Time Spent in preparation of Discharge (in minutes): 30 Hospital Course - Lab Results Lab Results: Micro Results 08/17/18 22:41 Naris MRSA Culture (Admit) - Final MRSA NOT DETECTED Most Recent Lab Values WBC 10.6 K/uL (4.8-10.8) 08/19/18 04:30 RBC 3.59 Mil/uL (3.80-5.20) L 08/19/18 04:30 Hgb 12.7 g/dL (12.0-16.0) 08/19/18 04:30 Hct 37.5 % (34.0-47.0) 08/19/18 04:30 MCV 104.5 fl (81.0-99.0) H 08/19/18 04:30 MCH 35.3 pg (27.0-31.0) H 08/19/18 04:30 MCHC 33.7 g/dL (33.0-37.0) 08/19/18 04:30 RDW 12.8 % (11.5-14.5) 08/19/18 04:30 Plt Count 134 K/uL (130-400) 08/19/18 04:30 MPV 7.6 fl (7.2-11.7) 08/18/18 04:35 Neut % (Auto) 79.3 % (50.0-75.0) H 08/18/18 04:35 Lymph % (Auto) 10.4 % (20.0-40.0) L 08/18/18 04:35 [place] % (Auto) 8.2 % (0.0-10.0) 08/18/18 04:35 Eos % (Auto) 1.7 % (0.0-4.0) 08/18/18 04:35 Baso % (Auto) 0.4 % (0.0-2.0) 08/18/18 04:35 Neut # (Auto) 6.5 K/uL (1.8-7.0) 08/18/18 04:35 Lymph # (Auto) 0.8 K/uL (1.0-4.3) L 08/18/18 04:35 [place] # (Auto) 0.7 K/uL (0.0-0.8) 08/18/18 04:35 Eos # (Auto) 0.1 K/uL (0.0-0.7) 08/18/18 04:35 Baso # (Auto) 0.0 K/uL (0.0-0.2) 08/18/18 04:35 Neutrophils % (Manual) 82 % (42-75) H 08/17/18 14:50 Band Neutrophils % 4 % (0-2) H 08/17/18 14:50 Lymphocytes % (Manual) 7 % (20-50) L 08/17/18 14:50 Monocytes % (Manual) 6 % (0-10) 08/17/18 14:50 Eosinophils % (Manual) 1 % (0-7) 08/17/18 14:50 Platelet Estimate Normal (NORMAL) 08/17/18 14:50 Anisocytosis (manual) Slight 08/17/18 14:50 Macrocytosis (manual) Slight 08/17/18 14:50 PT 11.4 Seconds (9.8-13.1) 08/17/18 16:45 INR 1.0 08/17/18 16:45 APTT 24.4 Seconds (25.6-37.1) L 08/17/18 16:45 D-Dimer, Quantitative 740 ng/mlDDU (0-230) H 08/17/18 16:45 Sodium 134 mmol/l (132-148) 08/19/18 21:00 Potassium 3.8 MMOL/L (3.6-5.0) 08/19/18 21:00 Chloride 97 mmol/L (98-107) L 08/19/18 21:00 Carbon Dioxide 24 mmol/L (22-30) 08/19/18 21:00 Anion Gap 17 (10-20) 08/19/18 21:00 BUN 2 mg/dl (7-17) L 08/19/18 21:00 Creatinine 0.3 mg/dl (0.7-1.2) L 08/19/18 21:00 Est GFR ( Amer) > 60 08/19/18 21:00 Est GFR (Non-Af Amer) > 60 08/19/18 21:00 POC Glucose (mg/dL) 84 mg/dL (65-110) 08/20/18 12:01 Random Glucose 66 mg/dL (65-105) 08/19/18 21:00 Calcium 8.1 mg/dL (8.4-10.2) L 08/19/18 21:00 Phosphorus 3.0 mg/dl (2.5-4.5) 08/19/18 21:00 Magnesium 1.6 MG/DL (1.6-2.3) 08/19/18 21:00 Total Bilirubin 0.6 mg/dl (0.2-1.3) 08/19/18 21:00 AST 48 U/L (14-36) H D 08/19/18 21:00 ALT 58 U/L (9-52) H 08/19/18 21:00 Alkaline Phosphatase 50 U/L (38-126) 08/19/18 21:00 Total Protein 5.4 G/DL (6.3-8.2) L 08/19/18 21:00 Albumin 2.7 g/dL (3.5-5.0) L 08/19/18 21:00 Globulin 2.7 gm/dL (2.2-3.9) 08/19/18 21:00 Albumin/Globulin Ratio 1.0 (1.0-2.1) 08/19/18 21:00 Triglycerides 60 mg/DL (0-149) 08/19/18 04:30 Cholesterol 115 mg/dL (0-199) 08/19/18 04:30 LDL Cholesterol Direct 45 mg/dL (0-129) 08/19/18 04:30 HDL Cholesterol 53 MG/DL (30-70) 08/19/18 04:30 Lipase 4251 U/L (23-300) H 08/19/18 04:30 - Hospital Course Hospital Course: Pt went to ER for abdominal pain. Full workup was done, which revealed pancreatitis, elevated lipase noted. The pt was seen by surgery and GI, where no surgical intervention was done. Aggressive IVF hydration was given during the hospital course, as well as pain control. The pt was discharged home on a low fat diet as tolerated, she will f/u with Dr. Marie in one week and have a CT A/P in 6-8 weeks. Discharge Exam - Head Exam Head Exam: ATRAUMATIC, NORMAL INSPECTION - Eye Exam Eye Exam: EOMI, Normal appearance, PERRL Pupil Exam: NORMAL ACCOMODATION, PERRL - ENT Exam ENT Exam: Mucous Membranes Moist - Neck Exam Neck exam: Full Rom - Respiratory Exam Respiratory Exam: Clear to PA & Lateral - Cardiovascular Exam Cardiovascular Exam: REGULAR RHYTHM, +S1, +S2 - GI/Abdominal Exam GI & Abdominal Exam: Normal Bowel Sounds, Tenderness - Extremities Exam Extremities exam: full ROM - Back Exam Back exam: FULL ROM - Neurological Exam Neurological exam: Alert, Normal Gait, Oriented x3 - Psychiatric Exam Psychiatric exam: Normal Affect - Skin Skin Exam: Dry, Warm Discharge Plan - Follow Up Plan Condition: CRITICAL Disposition: HOME/ ROUTINE Instructions: Pancreatitis (DC) Additional Instructions: f/u with dr marie in one week. low fat diet as tolerated. CT A/P in 6-8 weeks. Referrals: Иван Marie MD, PhD [Staff Provider] -
--- NOTE | 2018-08-20 20:31 | CP.PCM.PN ---
<Nito Nelson - Last Filed: 08/20/18 20:28> Subjective - Date & Time of Evaluation Date of Evaluation: 08/19/18 Time of Evaluation: 16:30 - Subjective Subjective: Surgery Progress Note- Dr. Tolliver 43F pmhx significant for anxiety, pancreatitis last summer s/p scorpion bite presents to [facility] ED w/ sharp abdominal pain in the lower abdomen, concentrated mid-epigastrum that started last , associated w/ nausea and non bloody, non-bilious vomiting. Hospital work up showed pancreatitis, CT scan resembles necrotic pancreatitis. Patient was admitted to the ICU for aggressive fluid hydration. GI on board. Denies: recent vomiting, fevers, chills. Objective - Vital Signs/Intake and Output Vital Signs (last 24 hours): Temp Pulse Resp BP Pulse Ox 98.4 F 95 H 18 138/88 96 08/20/18 08:27 08/20/18 08:27 08/20/18 08:27 08/20/18 08:27 08/20/18 08:27 - Labs Labs: 08/19/18 04:30 08/19/18 21:00 PT 11.4 Seconds (9.8-13.1) 08/17/18 16:45 INR 1.0 08/17/18 16:45 APTT 24.4 Seconds (25.6-37.1) L 08/17/18 16:45 - Constitutional Appears: Non-toxic, No Acute Distress - Head Exam Head Exam: ATRAUMATIC - Eye Exam Eye Exam: EOMI. absent: Scleral icterus - ENT Exam ENT Exam: Mucous Membranes Moist - Respiratory Exam Respiratory Exam: NORMAL BREATHING PATTERN. absent: Accessory Muscle Use, Respiratory Distress - Cardiovascular Exam Cardiovascular Exam: Tachycardia, REGULAR RHYTHM. absent: Bradycardia - GI/Abdominal Exam GI & Abdominal Exam: Soft, Tenderness (tenderness to palpation in mid- epigastrum). absent: Distended, Firm, Guarding, Rigid - Extremities Exam Extremities Exam: absent: Calf Tenderness - Neurological Exam Neurological Exam: Alert, Awake, Oriented x3 - Psychiatric Exam Psychiatric exam: Normal Affect - Skin Skin Exam: Intact, Warm Assessment and Plan - Assessment and Plan (Free Text) Assessment: 43 w/ necrotizing pancreatitis Plan: - continous vitals monitoring - f/u repeat labs - will continue to monitor - no acute surgical intervention indicated at this time - pain control and anti-emetic PRN - further recs per Dr. Tolliver surgical attending PGY2 <Mazin Tolliver - Last Filed: 08/20/18 21:01> Objective - Vital Signs/Intake and Output Vital Signs (last 24 hours): Temp Pulse Resp BP Pulse Ox 98.4 F 95 H 18 138/88 96 08/20/18 08:27 08/20/18 08:27 08/20/18 08:27 08/20/18 08:27 08/20/18 08:27 - Labs Labs: 08/19/18 04:30 08/19/18 21:00 PT 11.4 Seconds (9.8-13.1) 08/17/18 16:45 INR 1.0 08/17/18 16:45 APTT 24.4 Seconds (25.6-37.1) L 08/17/18 16:45 Attending/Attestation - Attestation I have personally seen and examined this patient.: Yes I have fully participated in the care of the patient.: Yes I have reviewed all pertinent clinical information, including history, physical exam and plan: Yes Notes (Text): Pt was seen and examined at bedside Agree with above note and assessment Pt is improving clinically c/w NPO, IVF Repeat Lipase in am c.w current mx Plan d.w pt in detail
--- NOTE | 2018-08-21 03:59 | CON ---
DATE: 08/18/2018 The consultation is forwarded by Dr. Vahid Oleary MD. Consultation is done by mi, Dr. Mazin Tolliver. REASON FOR CONSULTATION: This is a 43-year-old female with necrotizing pancreatitis, and the patient was seen and examined at the bedside. CHIEF COMPLAINT: Complaint of abdominal pain since last three days. HISTORY OF PRESENT ILLNESS: This is a 43-year-old female with a past medical history of anxiety, pancreatitis, status post scorpion bite. The patient was presented with a complaint of abdominal pain since last two day after ingestion of the alcohol at the constitution party, and the patient describes the pain as 5/10, continuous dull pain. At presentation, the patient does not have pain, and the patient is resting comfortably. No nausea or vomiting. No diarrhea. CT scan is suggestive of necrotizing pancreatitis. The patient is in the ICU currently. PAST MEDICAL HISTORY: As above. PAST SURGICAL HISTORY: Varicose vein surgery. ALLERGIES: NO KNOWN DRUG ALLERGIES. SOCIAL HISTORY: The patient drinks alcohol socially. Denies drugs and tobacco. FAMILY HISTORY: Noncontributory. REVIEW OF SYSTEMS: All 13 points are reviewed. GASTROINTESTINAL SYSTEM: Positive for abdominal pain. Negative for nausea or vomiting. CARDIOVASCULAR SYSTEM: Negative for cough, shortness of breath, or chest pain. Rest of the systems was pertinent negative except HPI. PHYSICAL EXAMINATION: VITAL SIGNS: Temperature is 98.2, pulse is 92, blood pressure is 124/91. GENERAL: The patient is not in acute distress. ABDOMEN: Soft. Mildly tender in the epigastric area. No guarding. No rebound. No peritoneal signs. CARDIOVASCULAR SYSTEM: S1 and S2 are normal. There is a murmur. Regular rhythm. PULMONARY SYSTEM: Bilateral equal air entry. There is no crackle. No rhonchi. No wheezing. NECK: Supple. There is no lymphadenopathy. No thyromegaly. Trachea is in the midline. EYES: PERRLA. Normal eye movement. No pallor. No icterus. EXTREMITIES: 2+ pulses. No edema. No deformity. NEUROLOGIC: Alert and oriented x3. Otilio coma scale is 15. There are no focal deficits. SKIN: Warm and dry. No ulcerations. No rashes. No open wound. LABORATORY DATA: White blood cell count is 8.1, hemoglobin is 11.9, platelet is 132. Rest of the labs, the lipase is 8000, and the previous lipase was 12,000. The patient also has abnormal LFTs. The CT scan of the abdomen and pelvis is reviewed, suggestive of necrotizing pancreatitis and no gallstones. Ultrasound of the abdomen is also reviewed, suggestive of no gallstones. 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 PLAN: 1. The patient should be n.p.o, IV fluids. 2. IV antibiotics empirically. 3. Serial blood tests for the lipase and amylase. 4. Serial abdominal exam. 5. Continue with the current management. The plan was discussed with the patient. The plan was also discussed with Dr. Rapp. The plan was discussed with the patient in detail. Mazin Tolliver MD [email or web address]
[2018-08-21 13:40] VITALS: O2SAT 99
== END 2018-08-20 14:50 | disposition home or self-care (01) | DRG 204 ==
LOC: H.ER 13:51 → H.ERHOLD 16:10 → H.ICU/CCU 22:03 → H.MEDSURG1 08-19 18:04
PROVIDERS: ADMIT Family Medicine; ATTEND Family Medicine
DX: K85.21 Alcohol induced acute pancreatitis with uninfected necrosis (principal); E87.6 Hypokalemia; F41.0 Panic disorder [episodic paroxysmal anxiety]; G89.29 Other chronic pain; M54.5 Low back pain